=== PATIENT | male | born 1970 ===

== ENCOUNTER 2024-04-29 00:55 | Inpatient (IN) | payer MEDICAID ==
[~2024-04-29] VITALS: Ht 177.8 cm; Wt 106.1 kg
[2024-04-29] MEDS ORDERED: CLINDAMYCIN 600 MG PIGGYBACK**ER OMNI IV ONE (01:57)
[2024-04-29] MEDS ORDERED: KETOROLAC TROMETHAMINE 15 MG INJ ONE (01:57)
[2024-04-29 02:01] LABS: BASOPHILS % (AUTO) 0.4 % (0.0-2.0); EOSINOPHILS # (AUTO) 1.4 K/uL (0.0-0.7); EOSINOPHILS % (AUTO) 12.2 % (0.0-7.0); HEMATOCRIT 41.4 % (36.7-47.1); HEMOGLOBIN 13.6 g/dL (12.5-16.3); LYMPHOCYTES # (AUTO) 2.1 K/uL (0.8-4.8); LYMPHOCYTES % (AUTO) 18.2 % (20.5-51.5); MEAN CORPUSCULAR HEMOGLOBIN 29.1 uug (23.8-33.4); MEAN CORPUSCULAR HGB CONC 33 g/dL (32.5-36.3); MEAN CORPUSCULAR VOLUME 88.3 fL (73.0-96.2); MONOCYTES # (AUTO) 0.6 K/uL (0.1-1.30); MONOCYTES % (AUTO) 5.4 % (0.0-11.0); NEUTROPHILS # (AUTO) 7.3 K/uL (1.8-8.9); NEUTROPHILS % (AUTO) 63.8 % (38.5-71.5); PLATELET COUNT (AUTO) 243 K/uL (152-348); RED BLOOD CELL COUNT(AUTO) 4.69 MIL/uL (4.06-5.63); RED CELL DISTRIBUTION WIDTH 14.3 % (12.1-16.2); WHITE BLOOD COUNT (AUTO) 11.4 K/uL (3.6-10.2)
[2024-04-29 02:02] LABS: DIFFERENTIAL COMMENT 1
[2024-04-29] MEDS: CLINDAMYCIN PHOSPHATE IV 600 MG in IV DEXTROSE 5% 100 ML IV ONE (02:05)
[2024-04-29] MEDS: KETOROLAC TROMETHAMINE 15 MG INJ IVP ONE (02:05)
[2024-04-29 02:07] LABS: CALCIUM 9.3 mg/dL (8.5-10.1); CREATININE 0.9 mg/dL (0.6-1.3)
[2024-04-29 02:13] LABS: ALBUMIN 3.6 g/dL (3.4-5.0); BILIRUBIN,TOTAL 0.8 mg/dL (0.2-1.0); TOTAL PROTEIN, SERUM 7.8 g/dL (6.4-8.2)
[2024-04-29 02:30] LABS: C-REACTIVE PROTEIN 5.41 mg/dL (0.00-0.30)
[2024-04-29 02:31] LABS: LACTIC ACID 2.1 mmol/L (0.4-2.0)
[2024-04-29] MEDS ORDERED: HYDROMORPHONE 1 MG/1 ML DISP.SYRIN ONE ×2 (02:51→03:52)
[2024-04-29] MEDS: HYDROMORPHONE 1 MG/1 ML DISP.SYRIN IV ONE ×2 (02:57→04:01)
[2024-04-29] MEDS ORDERED: SWABABLE VALVE TRANSFER SET EA MC ONE (03:00)
[2024-04-29] MEDS ORDERED: IV NORMAL SALINE 250 ML IV ONE (03:00)
[2024-04-29] MEDS ORDERED: IOHEXOL 300MG/ML 100 ML INFUS..BTL ONE ×2 (03:00→03:25)
[2024-04-29] MEDS ORDERED: AZITHROMYCIN 500MG/ D5W 250ML IVPB **ER PYXIS ONLY IV ONE (03:11)
[2024-04-29] MEDS ORDERED: IOHEXOL 300 MG/ML 10 ML VIAL ONE (03:24)
[2024-04-29] MEDS: AZITHROMYCIN IV 500 MG in IV DEXTROSE 5% 250 ML IV ONE (03:39)
[2024-04-29] MEDS ORDERED: ONDANSETRON 4 MG/2 ML VIAL IV PRN (05:15)
[2024-04-29] MEDS ORDERED: REMEDY ESSENTIAL ZINC PASTE 113 GM TP PRN (05:15)
[2024-04-29] MEDS: IV NS 1000 ML 1,000 ML IV ONE (05:19)
[2024-04-29] MEDS ORDERED: CLINDAMYCIN PHOSPHATE IV 600 MG in IV DEXTROSE 5% 100 ML IV SCH (06:00)
[2024-04-29] MEDS: ENOXAPARIN SODIUM 100 MG/ML DISP.SYRIN SQ SCH (06:09)
[2024-04-29 06:31] LABS: BASOPHILS # (AUTO) 0.1 K/UL (0.0-0.2); BASOPHILS % (AUTO) 0.7 % (0.0-2.0); EOSINOPHILS # (AUTO) 1.5 K/uL (0.0-0.7); EOSINOPHILS % (AUTO) 14.2 % (0.0-7.0); HEMATOCRIT 34.1 % (36.7-47.1); HEMOGLOBIN 11.5 g/dL (12.5-16.3); LYMPHOCYTES # (AUTO) 1.9 K/uL (0.8-4.8); LYMPHOCYTES % (AUTO) 18.3 % (20.5-51.5); MEAN CORPUSCULAR HEMOGLOBIN 29.2 uug (23.8-33.4); MEAN CORPUSCULAR HGB CONC 34 g/dL (32.5-36.3); MEAN CORPUSCULAR VOLUME 86.9 fL (73.0-96.2); MONOCYTES # (AUTO) 0.9 K/uL (0.1-1.30); MONOCYTES % (AUTO) 8.7 % (0.0-11.0); NEUTROPHILS # (AUTO) 5.9 K/uL (1.8-8.9); NEUTROPHILS % (AUTO) 58.1 % (38.5-71.5); PLATELET COUNT (AUTO) 188 K/uL (152-348); RED BLOOD CELL COUNT(AUTO) 3.92 MIL/uL (4.06-5.63); RED CELL DISTRIBUTION WIDTH 13.8 % (12.1-16.2); WHITE BLOOD COUNT (AUTO) 10.2 K/uL (3.6-10.2)
[2024-04-29 06:32] LABS: DIFFERENTIAL COMMENT 1
[2024-04-29 06:45] LABS: CALCIUM 8.5 mg/dL (8.5-10.1); CREATININE 0.8 mg/dL (0.6-1.3); MAGNESIUM 1.8 mg/dL (1.8-2.4); PHOSPHOROUS 3.7 mg/dL (2.5-4.9)
[2024-04-29] MEDS: CLINDAMYCIN PHOSPHATE IV 600 MG in IV DEXTROSE 5% 100 ML IV SCH (07:58)
[2024-04-29 08:04] VITALS: BP 118/55; TEMP 98.3; O2SAT 99
[2024-04-29] MEDS: MORPHINE SULFATE 2 MG/1 ML DISP.SYRIN IV PRN ×2 (08:56→20:27)
[2024-04-29] MEDS: IV NS 1000 ML 1,000 ML IV PRN (10:11)
[2024-04-29 11:19] VITALS: BP 108/46; TEMP 99.4; O2SAT 96
[2024-04-29] MEDS: ACETAMINOPHEN 325 MG TABLET PO PRN (11:42)
[2024-04-29 15:10] VITALS: BP 153/65; TEMP 98.6; O2SAT 99
[2024-04-29 19:30] VITALS: BP 129/89; TEMP 99.1; O2SAT 97
[2024-04-29] MEDS: AZITHROMYCIN IV 500 MG in IV DEXTROSE 5% 250 ML IV SCH (20:26)
[2024-04-29] MEDS: MAGNESIUM HYDROXIDE 30 ML LIQUID UDC PO PRN (21:14)
[2024-04-29] MEDS ORDERED: DOXYCYCLINE HYCLATE 100 MG INJ IV ONE ×2 (22:07→22:31)
[2024-04-29] MEDS: DOXYCYCLINE HYCLATE IV 100 MG in IV DEXTROSE 5% 100 ML IV SCH (22:39)
[2024-04-29] MEDS: levoFLOXacin 750 MG TABLET PO SCH (22:39)
[2024-04-30 06:30] VITALS: BP 120/67; TEMP 98.6; O2SAT 98
[2024-04-30 11:20] VITALS: BP 119/69; TEMP 98.5; O2SAT 98
[2024-04-30] MEDS ORDERED: MORPHINE SULFATE 2 MG/1 ML DISP.SYRIN IV PRN (14:15)
[2024-04-30] MEDS ORDERED: MORPHINE SULFATE 4 MG/1 ML DISP.SYRIN IM PRN (14:15)
[2024-04-30 15:20] VITALS: BP 137/61; TEMP 97.9; O2SAT 98
[2024-04-30] MEDS: VANCOMYCIN IV 2,000 MG in IV DEXTROSE 5% 500 ML IV SCH (15:43)
[2024-04-30] MEDS: MORPHINE SULFATE 4 MG/1 ML DISP.SYRIN IV PRN (17:53)
[2024-04-30 19:03] VITALS: BP 136/87; TEMP 98.7; O2SAT 98
[2024-05-01 04:55] VITALS: BP 144/67; TEMP 98.5; O2SAT 100
[2024-05-01 11:01] VITALS: BP 124/59; TEMP 98.7; O2SAT 100
[2024-05-01 11:04] VITALS: BP 137/78; TEMP 98.7; O2SAT 99
[2024-05-01] MEDS: HYDROMORPHONE 1 MG/1 ML DISP.SYRIN IV PRN (14:34)
[2024-05-01 14:57] VITALS: BP 144/73; TEMP 97.6; O2SAT 97
[2024-05-01] MEDS: DOXYCYCLINE HYCLATE 100 MG TABLET PO SCH (17:27)
[2024-05-01 20:12] VITALS: BP 168/92; TEMP 98.1; O2SAT 98
[2024-05-01] MEDS: LIDOCAINE 2%-EPI 1:100,000 20 ML VIAL IJ ONE (22:00)
[2024-05-01] MEDS ORDERED: LIDOCAINE 2%-EPI 1:100,000 20 ML VIAL ONE (22:52)
[2024-05-02 04:30] VITALS: BP 135/66; TEMP 98.1; O2SAT 96
[2024-05-02 06:49] LABS: BASOPHILS % (AUTO) 0.5 % (0.0-2.0); EOSINOPHILS # (AUTO) 0.8 K/uL (0.0-0.7); EOSINOPHILS % (AUTO) 9.9 % (0.0-7.0); HEMATOCRIT 37.1 % (36.7-47.1); HEMOGLOBIN 12.6 g/dL (12.5-16.3); LYMPHOCYTES # (AUTO) 1.5 K/uL (0.8-4.8); LYMPHOCYTES % (AUTO) 18.4 % (20.5-51.5); MEAN CORPUSCULAR HEMOGLOBIN 29.5 uug (23.8-33.4); MEAN CORPUSCULAR HGB CONC 34 g/dL (32.5-36.3); MEAN CORPUSCULAR VOLUME 86.8 fL (73.0-96.2); MONOCYTES # (AUTO) 0.7 K/uL (0.1-1.30); MONOCYTES % (AUTO) 8.4 % (0.0-11.0); NEUTROPHILS # (AUTO) 5.1 K/uL (1.8-8.9); NEUTROPHILS % (AUTO) 62.8 % (38.5-71.5); PLATELET COUNT (AUTO) 224 K/uL (152-348); RED BLOOD CELL COUNT(AUTO) 4.27 MIL/uL (4.06-5.63); RED CELL DISTRIBUTION WIDTH 13.8 % (12.1-16.2); WHITE BLOOD COUNT (AUTO) 8.2 K/uL (3.6-10.2)
[2024-05-02 06:59] LABS: CREATININE 0.7 mg/dL (0.6-1.3); MAGNESIUM 1.8 mg/dL (1.8-2.4); POTASSIUM 4.1 mmol/L (3.5-5.1)
[2024-05-02 07:03] LABS: DIFFERENTIAL COMMENT 1
[2024-05-02 07:57] VITALS: BP 136/63; TEMP 98.2; O2SAT 100
[2024-05-02 16:18] VITALS: BP 150/72; TEMP 98; O2SAT 100
[2024-05-02] MEDS ORDERED: IOHEXOL 300MG/ML 100 ML INFUS..BTL ONE ×2 (18:44→19:10)
[2024-05-02 19:00] VITALS: BP 150/75; TEMP 98.5; O2SAT 99
[2024-05-03 06:00] VITALS: BP 135/52; TEMP 98.5; O2SAT 100
[2024-05-03 11:10] VITALS: BP 120/54; TEMP 98.5; O2SAT 96
[2024-05-03 16:01] VITALS: BP 155/76; TEMP 98.4; O2SAT 95
[2024-05-03 19:00] VITALS: BP 132/66; TEMP 98.1; O2SAT 100
[2024-05-04 06:00] VITALS: BP 132/66; TEMP 98.2; O2SAT 99
[2024-05-04 09:24] LABS: CALCIUM 9.2 mg/dL (8.5-10.1); CREATININE 0.8 mg/dL (0.6-1.3); MAGNESIUM 1.9 mg/dL (1.8-2.4); POTASSIUM 3.7 mmol/L (3.5-5.1)
[2024-05-04 11:03] VITALS: BP 128/51; TEMP 98.1; O2SAT 97
[2024-05-04] MEDS ORDERED: OXYCODONE HCL 5 MG TABLET PO PRN (12:00)
[2024-05-04] MEDS: HYDROMORPHONE 1 MG/1 ML DISP.SYRIN IV PRN (12:44)
[2024-05-04 15:38] VITALS: BP 152/75; TEMP 98; O2SAT 99
[2024-05-04] MEDS: ARGININE/GLUTAMINE/CALCIUM BMB 1 EACH POWD.PACK PO SCH (16:30)
[2024-05-04 21:38] VITALS: BP 177/94; TEMP 98.1; O2SAT 99
[2024-05-04] MEDS: METOPROLOL TARTRATE 25 MG TABLET PO SCH (22:18)
[2024-05-04] MEDS: VANCOMYCIN IV 1,250 MG in IV DEXTROSE 5% 250 ML IV SCH (22:18)
[2024-05-05 05:00] VITALS: BP 160/76; TEMP 97.9; O2SAT 98
[2024-05-05 08:10] VITALS: TEMP 98.6
[2024-05-05] MEDS ORDERED: PROPOFOL 200 MG/20 ML BOTTLE ONE (08:15)
[2024-05-05] MEDS ORDERED: VANCOMYCIN 1000 MG VIAL ONE (08:22)
[2024-05-05] MEDS ORDERED: LIDOCAINE 1%-EPI 1:100,000 20 ML VIAL ONE (08:22)
[2024-05-05] MEDS ORDERED: FENTANYL CITRATE 250 MCG/5 ML AMPUL ONE (08:54)
[2024-05-05] MEDS ORDERED: ROCURONIUM BROMIDE 50 MG/5 ML VIAL ONE (08:54)
[2024-05-05 08:56] VITALS: BP 165/103; TEMP 98.3; O2SAT 99
[2024-05-05] MEDS ORDERED: FENTANYL CITRATE 100 MCG/2 ML AMPUL ONE (10:08)
[2024-05-05] MEDS: FENTANYL CITRATE 100 MCG/2 ML AMPUL IV PRN (10:20)
[2024-05-05 11:32] VITALS: BP 145/87; TEMP 98.6; O2SAT 99
[2024-05-05 16:47] VITALS: BP 149/67; TEMP 98.5; O2SAT 99
[2024-05-05 19:00] VITALS: BP 155/78; TEMP 98.5; O2SAT 98
[2024-05-06 05:09] VITALS: BP 155/80; TEMP 98.2; O2SAT 100
[2024-05-06] MEDS ORDERED: VANCOMYCIN 1000 MG VIAL ONE (05:54)
[2024-05-06] MEDS ORDERED: VANCOMYCIN HCL 500 MG VIAL ONE (05:55)
[2024-05-06 11:25] VITALS: BP 174/103; TEMP 97.9; O2SAT 100
[2024-05-06] MEDS: OXYCODONE HCL 5 MG TABLET PO PRN (12:35)
[2024-05-06 15:33] VITALS: BP 150/79; TEMP 97.8; O2SAT 100
[2024-05-06] MEDS: SODIUM HYPOCHLORITE 0.125% (QUARTER STRENGTH) 473 ML BOTTLE TP SCH (18:20)
[2024-05-06 20:00] VITALS: BP 149/76; TEMP 98.6; O2SAT 100
[2024-05-06] MEDS: APIXABAN 5 MG TABLET PO SCH (20:39)
[2024-05-07 04:00] VITALS: BP 120/58; TEMP 98; O2SAT 100
[2024-05-07] MEDS ORDERED: LEVO750T46 PO (11:36)
[2024-05-07] MEDS ORDERED: HYDR-4077 PO (11:36)
[2024-05-07] MEDS ORDERED: METO25TA6 PO (11:36)
[2024-05-07] MEDS ORDERED: DOXY100T2 PO (11:36)
[2024-05-07] MEDS ORDERED: APIX5TAB PO (11:36)
[2024-05-07] MEDS ORDERED: SODI473S8 TP (11:36)
[2024-05-07 11:40] VITALS: BP 134/78; TEMP 98.3; O2SAT 99
[2024-05-07 14:00] VITALS: BP 134/78
== END 2024-05-07 14:05 | disposition home health service (06) | DRG 710 ==
LOC: ER 01:27 → MEDSURG3 05:05
PROVIDERS: ADMIT Nurse Practitioner Family; ATTEND Internal Medicine
PROC: 05HB33Z Insertion of Infusion Device into Right Basilic Vein, Percutaneous Approach (ICD-10-PCS; 2024-04-30)
PROC: 0J9H0ZZ Drainage of Left Lower Arm Subcutaneous Tissue and Fascia, Open Approach (ICD-10-PCS; principal; 2024-05-01)
PROC: 0KBB0ZZ Excision of Left Lower Arm and Wrist Muscle, Open Approach (ICD-10-PCS; 2024-05-05)
DX: A41.9 Sepsis, unspecified organism (principal); I82.622 Acute embolism and thrombosis of deep veins of left upper extremity; M60.032 Infective myositis, left forearm; S50.812A Abrasion of left forearm, initial encounter; E66.9 Obesity, unspecified; D64.9 Anemia, unspecified; L02.414 Cutaneous abscess of left upper limb; L03.114 Cellulitis of left upper limb; I82.612 Acute embolism and thrombosis of superficial veins of left upper extremity; W55.03XA Scratched by cat, initial encounter; Y92.019 Unspecified place in single-family (private) house as the place of occurrence of the external cause; Z68.33 Body mass index [BMI] 33.0-33.9, adult; Z87.891 Personal history of nicotine dependence; Z88.0 Allergy status to penicillin
CPT/HCPCS: 36415; 83605; 83735; 84100; 85025; 85730; 86140; 87040; A4649; A4663; G0378; J0456; J0690; J1171; J1650; J1885; J2270; J3010; J3370; J3490; J7040; J7050; J7060; Q9967